=== PATIENT | female | born 1975 | race Hispanic/Latino ===

== ENCOUNTER 2021-01-19 20:40 | Emergency (ER) | payer OTHER, SELFPAY ==
[2021-01-19] MEDS ORDERED: ASPIRIN 325 MG TABLET ONE (20:52)
[2021-01-19] MEDS ORDERED: NITROGLYCERIN 0.4 MG SL TAB SL ONE (20:53)
[2021-01-19] MEDS ORDERED: NITROGLYCERIN 1GM OINT 1 INCH/1GM TD ONE (20:53)
[2021-01-19 20:57] LABS: BASOPHILS % (AUTO) 0.4 % (0.0-5.0); EOSINOPHILS % (AUTO) 1.1 % (0.0-8.0); HEMATOCRIT 37.8 % (36-48); LYMPHOCYTES % (AUTO) 26.3 % (21.0-51.0); MEAN CORPUSCULAR HEMOGLOBIN 27.5 pg (27.0-33.0); MEAN CORPUSCULAR HGB CONC 33.1 g/dL (32.0-36.0); MEAN CORPUSCULAR VOLUME 83.3 fL (79-99); MONOCYTES % (AUTO) 6.1 % (3.0-13.0); NEUTROPHILS % (AUTO) 65.6 % (40.0-77.0); PLATELET COUNT (AUTO) 291 K/uL (130-400); RED BLOOD CELL COUNT(AUTO) 4.54 MIL/uL (4.00-5.50); RED CELL DISTRIBUTION WIDTH 13.6 % (11.0-15.5); WHITE BLOOD COUNT (AUTO) 8.1 K/uL (4.8-10.8)
[2021-01-19 21:08] LABS: APPEARANCE,URINE CLOUDY (CLEAR); BILIRUBIN,URINE NEGATIVE (NEGATIVE); COLOR,URINE YELLOW (YELLOW); GLUCOSE, URINE (UA) NEGATIVE (NEGATIVE); KETONES,URINE NEGATIVE (NEGATIVE); LEUKOCYTE ESTERASE ,URINE NEGATIVE (NEGATIVE); NITRATE,URINE NEGATIVE (NEGATIVE); OCCULT BLOOD,URINE NEGATIVE (NEGATIVE); PH,URINE 7.5 (5.0-8.0); PROTEIN,URINE NEGATIVE (NEGATIVE); UROBILINOGEN,URINE 0.2 mg/dL (0.2-1.0)
[2021-01-19 21:10] LABS: CREATININE 0.7 mg/dL (0.5-1.5); INR 0.95 (0.85-1.15); POTASSIUM 3.7 mmol/L (3.5-5.1); PROTHROMBIN TIME 10.4 SEC (9.6-11.6)
[2021-01-19 21:12] LABS: PARTIAL THROMBOPLASTIN TIME 23.9 SEC (26.3-35.5)
[2021-01-19 21:13] LABS: BACTERIA,URINE Rare /HPF (None Seen); RBC,URINE 0-1 /HPF (0-1); WBC,URINE 0-1 /HPF (0-1)
[2021-01-19 21:14] LABS: AMORPHOUS SEDIMENT,UR Moderate /LPF (None Seen); SQUAMOUS EPITHELIAL CELL,UR Rare /HPF (0-2)
[2021-01-19 21:14] LABS: ALBUMIN 3.9 g/dL (3.5-5.0); BILIRUBIN,TOTAL 0.1 mg/dL (0.2-1.0); TOTAL PROTEIN, SERUM 7.8 g/dL (6.0-8.3)
[2021-01-21] MEDS ORDERED: LISI10TA24 PO ×2 (22:22)
[2021-01-22] MEDS ORDERED: NAPR-1192 PO ×2 (11:47)
== END 2021-01-19 21:58 | disposition home or self-care (01) ==
LOC: EDH 20:40
DX: R07.89 Other chest pain (principal); I10 Essential (primary) hypertension; Z20.822 Contact with and (suspected) exposure to COVID-19
CPT/HCPCS: 36415; 71045; 80053; 81001; 82550; 83690; 84484; 85025; 85610; 85730; 87426; 93005; 99285; U0003

== ENCOUNTER 2021-01-21 14:17 | Observation (INO) | payer SELFPAY ==
[~2021-01-21] VITALS: Ht 154.9 cm; Wt 73.6 kg
[2021-01-21] MEDS ORDERED: ASPIRIN 325 MG TABLET ONE (14:56)
[2021-01-21 14:59] LABS: BASOPHILS % (AUTO) 0.6 % (0.0-5.0); EOSINOPHILS % (AUTO) 1.3 % (0.0-8.0); HEMATOCRIT 39.1 % (36-48); LYMPHOCYTES % (AUTO) 22.4 % (21.0-51.0); MEAN CORPUSCULAR HGB CONC 32.7 g/dL (32.0-36.0); MEAN CORPUSCULAR VOLUME 82.5 fL (79-99); MONOCYTES % (AUTO) 4.5 % (3.0-13.0); NEUTROPHILS % (AUTO) 70.9 % (40.0-77.0); PLATELET COUNT (AUTO) 295 K/uL (130-400); RED BLOOD CELL COUNT(AUTO) 4.74 MIL/uL (4.00-5.50); RED CELL DISTRIBUTION WIDTH 13.5 % (11.0-15.5); WHITE BLOOD COUNT (AUTO) 6.7 K/uL (4.8-10.8)
[2021-01-21 15:09] LABS: CREATININE 0.6 mg/dL (0.5-1.5); POTASSIUM 3.5 mmol/L (3.5-5.1)
[2021-01-21 15:13] LABS: ALBUMIN 3.7 g/dL (3.5-5.0); BILIRUBIN,TOTAL 0.1 mg/dL (0.2-1.0); TOTAL PROTEIN, SERUM 7.7 g/dL (6.0-8.3)
[2021-01-21 15:23] LABS: B-TYPE NATRIURETIC PEPTIDE 19 pg/mL (0-100); INR 0.98 (0.85-1.15); PROTHROMBIN TIME 10.7 SEC (9.6-11.6)
[2021-01-21 15:24] LABS: PARTIAL THROMBOPLASTIN TIME 23.9 SEC (26.3-35.5)
[2021-01-21 15:27] LABS: APPEARANCE,URINE Clear (CLEAR); BILIRUBIN,URINE Negative (NEGATIVE); COLOR,URINE Yellow (YELLOW); GLUCOSE, URINE (UA) 250 mg/dL (NEGATIVE); KETONES,URINE Negative (NEGATIVE); LEUKOCYTE ESTERASE ,URINE Trace (NEGATIVE); NITRATE,URINE Negative (NEGATIVE); OCCULT BLOOD,URINE Negative (NEGATIVE); PH,URINE 5.5 (5.0-8.0); PROTEIN,URINE Negative (NEGATIVE); UROBILINOGEN,URINE 0.2 mg/dL (0.2-1.0)
[2021-01-21 15:52] LABS: BACTERIA,URINE Few /HPF (None Seen); MUCUS,URINE Few LPF (None Seen); SQUAMOUS EPITHELIAL CELL,UR Moderate /HPF (0-2)
[2021-01-21] MEDS ORDERED: MORPHINE SULFATE 2 MG/ML 1ML SYG IVP ONE (16:30)
[2021-01-21] MEDS ORDERED: ACETAMINOPHEN 325 MG TAB PO PRN (16:45)
[2021-01-21 16:48] LABS: HEMOGLOBIN A1C 5.8 % (4.0-6.0)
[2021-01-21 16:49] LABS: AMPHET/METH SCREEN,URINE NEGATIVE (NEGATIVE); BARBITURATE SCREEN, URINE NEGATIVE (NEGATIVE); BENZODIAZEPINES SCREEN,URINE NEGATIVE (NEGATIVE); CANNABINOID SCREEN,URINE NEGATIVE (NEGATIVE); COCAINE SCREEN,URINE NEGATIVE (NEGATIVE); OPIATE SCREEN,URINE NEGATIVE (NEGATIVE); PHENCYCLIDINE SCREEN,URINE NEGATIVE (NEGATIVE)
[2021-01-21 16:59] LABS: THYROID STIMULATING HORMONE 0.77 uIU/mL (0.36-3.74)
[2021-01-21] MEDS ORDERED: MORPHINE SULFATE 2 MG/ML 1ML SYG ONE (17:28)
[2021-01-21 20:50] VITALS: BP 146/94
[2021-01-21] MEDS ORDERED: LISI10TA24 PO (22:22)
[2021-01-22 00:05] VITALS: BP 137/83
[2021-01-22 03:48] VITALS: BP 146/84
[2021-01-22 07:55] VITALS: BP 171/99
[2021-01-22] MEDS ORDERED: LISINOPRIL 10 MG TABLET PO SCH (09:00)
[2021-01-22] MEDS: NITROGLYCERIN 0.4 MG SL TAB SL PRN ×3 (10:25→10:49)
[2021-01-22 10:50] VITALS: BP 132/82
[2021-01-22] MEDS ORDERED: NAPROXEN 500 MG TABLET PO SCH (11:45)
[2021-01-22] MEDS ORDERED: NAPR-1192 PO (11:47)
[2021-01-22 11:54] VITALS: BP 132/82
== END 2021-01-22 17:20 | disposition home or self-care (01) ==
LOC: EDH 14:17 → EDHIP 14:18 → 3DH 19:27
PROVIDERS: ADMIT Internal Medicine; ATTEND Internal Medicine
DX: R07.89 Other chest pain (principal); I10 Essential (primary) hypertension; M94.0 Chondrocostal junction syndrome [Tietze]; Z90.49 Acquired absence of other specified parts of digestive tract; Z79.899 Other long term (current) drug therapy
CPT/HCPCS: 36415; 71045; 80053; 80061; 80305; 81001; 81025; 82550; 83036; 83880; 84443; 84484 ×3; 85025; 85610; 85730; 93005 ×2; 99285; G0378 ×25